=== PATIENT | male | born 1960 | race Caucasian/White ===

== ENCOUNTER 2017-12-29 09:55 | Inpatient (IN) | payer BC ==
--- NOTE | 2017-12-29 10:29 | PDOC ---
History of Present Illness - General History Source: Patient Exam Limitations: No Limitations - History of Present Illness Initial Comments: The patient is a 57 year old male with no significant past medical history of who presents to the emergency department for evaluation for dark stool and dizziness. The patient reports episodes of vomiting and stools with a dark color for 3 days. The patient reports associated symptoms of dyspnea and epigastric discomfort. The patient describes worsening of shortness of breath is exacerbated with movement. Of note, he denies taking blood thinners. The patient denies chest pain and headache. Denies fevers, chills, nausea, vomiting, diarrhea, and constipation. Denies dysuria, frequency, urgency, and hematuria. Allergies: NKA Past surgical history: Not reported. Social history: No reported cigarette, alcohol, or drug use. <Aleyda Tolbert - Last Filed: 12/29/17 12:38> <Darien Jo - Last Filed: 12/29/17 14:55> - General Chief Complaint: Rectal Bleed Stated Complaint: pale/ PCP SENT Time Seen by Provider: 12/29/17 10:28 Past History <Aleyda Tolbert - Last Filed: 12/29/17 12:38> - Past Medical History COPD: No - Suicide/Smoking/Psychosocial Hx Smoking History: Never smoked Information on smoking cessation initiated: No Hx Alcohol Use: No Drug/Substance Use Hx: No Substance Use Type: None <Darien Jo - Last Filed: 12/29/17 14:55> - Past Medical History Allergies/Adverse Reactions: Allergies Allergy/AdvReac Type Severity Reaction Status Date / Time No Known Allergies Allergy Verified 12/29/17 10:03 Home Medications: Ambulatory Orders NK [No Known Home Medication] 12/29/17 Review of Systems - Review of Systems Able to Perform ROS?: Yes Comments:: A complete review of 10 out of 10 review of systems is taken and is negative apart from what is previously mentioned below and in the HPI. <Aleyda Tolbert - Last Filed: 12/29/17 12:38> *Physical Exam - Vital Signs Last Vital Signs Temp Pulse Resp BP Pulse Ox 98.7 F 99 H 18 136/77 98 12/29/17 10:04 12/29/17 10:04 12/29/17 10:04 12/29/17 10:04 12/29/17 11:00 - Physical Exam Comments: Vitals: Triage Vital signs reviewed General Appearance: no acute distress, well nourished well developed, Head: Atraumatic, normocephalic Neck: Supple;No Nuchal rigidity Chest Wall: Nontender Cardiac: Regular rate and rhythm, no murmurs, no rubs, no gallops, Lungs: Clear to auscultation bilateral, good air movement bilaterally, Abdomen: Soft, nondistended, normal bowel sounds, nontender to palpation Rectal: Exam deferred Extremities: Full range of motion to all extremities, no cyanosis, clubbing, or edema Skin: +Pale, no rashes or lesions, no petechiae Psych: normal mood, normal affect <Aleyda Tolbert - Last Filed: 12/29/17 12:38> - Vital Signs Last Vital Signs Temp Pulse Resp BP Pulse Ox 98.7 F 99 H 18 136/77 100 12/29/17 10:04 12/29/17 10:04 12/29/17 10:04 12/29/17 10:04 12/29/17 10:04 <Darien Jo - Last Filed: 12/29/17 14:55> Heart Score/ECG Review - ECG Impressions Comment:: 12/29/17 14:54 EKG performed at 10:30 AM demonstrates sinus rhythm [address] elevations nonspecific T-wave abnormalities laterally Interpreted by me. <Darien Jo - Last Filed: 12/29/17 14:55> ED Treatment Course - LABORATORY CBC & Chemistry Diagram: 12/29/17 10:55 12/29/17 10:44 - ADDITIONAL ORDERS Additional order review: Laboratory Results 12/29/17 12/29/17 12/29/17 10:55 10:44 10:44 PT with INR INR PTT (Actin FS) Sodium Potassium Chloride Carbon Dioxide Anion Gap BUN Creatinine Creat Clearance w eGFR Random Glucose Lactic Acid 1.8 Calcium Total Bilirubin AST ALT Alkaline Phosphatase Total Protein Albumin Stool Occult Blood Positive Blood Type AB POSITIVE Antibody Screen Negative Crossmatch See Detail 12/29/17 12/29/17 10:44 10:44 PT with INR 11.90 H INR 1.05 PTT (Actin FS) 23.3 L Sodium 143 Potassium 4.4 Chloride 112 H Carbon Dioxide 25 Anion Gap 6 L BUN 41 H Creatinine 0.9 Creat Clearance w eGFR > 60 Random Glucose 107 H Lactic Acid Calcium 8.1 L Total Bilirubin 0.2 AST 13 L ALT 20 Alkaline Phosphatase 59 Total Protein 5.7 L Albumin 3.1 L Stool Occult Blood Blood Type Antibody Screen Crossmatch 12/29/17 10:55 RBC 2.61 L MCV 84.1 MCHC 33.1 RDW 13.8 MPV 8.5 Neutrophils % 79.0 Lymphocytes % 13.9 Monocytes % 5.2 Eosinophils % 1.3 Basophils % 0.6 - Medications Given in the ED: ED Medications Discontinued Medications Generic Name Dose Route Start Last Admin Trade Name Piter PRN Reason Stop Dose Admin Pantoprazole Sodium 40 mg 12/29/17 11:51 12/29/17 12:01 Protonix Iv IVPUSH 12/29/17 11:52 40 mg ONCE ONE Administration <Aleyda Tolbert - Last Filed: 12/29/17 12:38> - LABORATORY CBC & Chemistry Diagram: 12/29/17 10:55 12/29/17 10:44 - RADIOLOGY Radiology Studies Ordered: Category Date Time Status CXRPORT [CHEST X-RAY PORTABLE*] [RAD] Stat Radiology 12/29/17 10:28 Ordered <Darien Jo - Last Filed: 12/29/17 14:55> Medical Decision Making - Medical Decision Making 12/29/17 12:41 The patient is a 57 year old male with no significant past medical history of who presents to the emergency department for evaluation for dark stool and dizziness. Will plan: -Labs -ECG Patient was admitted. <Aleyda Tolbert - Last Filed: 12/29/17 12:38> - Medical Decision Making History and examination concerning for upper GI bleed likely ulcer Dr. Glass gastroenterology consultation at bedside labs notable for hemoglobin of 7.[address] Elizalde patient's primary care provider we'll transfuse 2 units start patient on ppi bolus/gtt admit to medicine for further management. <Darien Jo - Last Filed: 12/29/17 14:55> *DC/Admit/Observation/Transfer - Attestations Scribe Attestion: Documentation prepared by Aleyda Tolbert, acting as medical supply technician for Darien oJ MD. <Aleyda Tolbert - Last Filed: 12/29/17 12:38> - Discharge Dispostion Admit: Yes <Sandro,Darien - Last Filed: 12/29/17 14:55> Diagnosis at time of Disposition: GI bleed Qualifiers: GI bleed type/associated pathology: unspecified gastrointestinal hemorrhage type Qualified Code(s): K92.2 - Gastrointestinal hemorrhage, unspecified
[2017-12-29 11:04] LABS: BASO % 0.6 % (0-2.0); EOS % 1.3 % (0-4.5); HEMOGLOBIN 7.3 GM/dL (11.7-16.9); LYMPH % 13.9 % (8-40); MCH 27.8 pg (25.7-33.7); MCHC 33.1 g/dl (32.0-35.9); MEAN CELL VOLUME 84.1 fl (80-96); MEAN PLT VOLUME 8.5 fl (7.5-11.1); MONO % 5.2 % (3.8-10.2); PLATELET COUNT 222 K/MM3 (134-434); RBC 2.61 M/mm3 (4.00-5.60); RDW 13.8 % (11.9-15.9); WHITE BLOOD COUNT 13.9 K/mm3 (4.0-10.0)
[2017-12-29 11:23] LABS: INR 1.05 (0.82-1.09); PROTHROMBIN TIME (PATIENT) 11.9 SEC (9.98-11.88)
[2017-12-29 11:26] LABS: ACTIVATED PTT 23.3 SECONDS (26.9-34.4)
[2017-12-29 11:35] LABS: ALBUMIN 3.1 g/dl (3.4-5.0); ANION GAP 6 (8-16); BILIRUBIN,TOTAL 0.2 mg/dL (0.2-1.0); BLOOD UREA NITROGEN 41 mg/dL (7-18); CALCIUM 8.1 mg/dL (8.5-10.1); CHLORIDE 112 mmol/L (98-107); CO2 25 mmol/L (21-32); CREATININE 0.9 mg/dL (0.7-1.3); GLUCOSE,RANDOM 107 mg/dL (74-106); POTASSIUM 4.4 mmol/L (3.5-5.1); SGOT/AST 13 U/L (15-37); SGPT/ALT 20 U/L (12-78); SODIUM 143 mmol/L (136-145); TOT PROT 5.7 g/dl (6.4-8.2)
[2017-12-29 11:36] LABS: ALK PHOS 59 U/L (45-117)
[2017-12-29] MEDS ORDERED: PANTOPRAZOLE SODIUM 40 MG VIAL IVPUSH ONE (11:51)
[2017-12-29] MEDS: PANTOPRAZOLE SODIUM 80 MG in SODIUM CHLORIDE 100 ML IVPB SCH ×2 (12:01→22:54)
[2017-12-29] MEDS ORDERED: PANTOPRAZOLE SODIUM 40 MG/100 ML BAG IVPB ONE (13:10)
[2017-12-29] MEDS ORDERED: PANTOPRAZOLE SODIUM 40 MG VIAL ONE (13:11)
[2017-12-29 14:27] VITALS: BMI 30.8
--- NOTE | 2017-12-29 14:34 | CON.GI ---
Consult Consult Specialty:: GI Reason for Consultation:: anemia - History of Present Illness History of Present Illness: As per ED intake: the patient is a 57 year old male with no significant past medical history of who presents to the emergency department for evaluation for dark stool and dizziness. The patient reports episodes of vomiting and stools with a dark color for 3 days. The patient reports associated symptoms of dyspnea and epigastric discomfort. The patient describes worsening of shortness of breath is exacerbated with movement. Of note, he denies taking blood thinners. No prior history of significant GI-related issues, other than constipation. He takes laxatives on/off. Denies chronic NSAIDs, ETOH. No estephania hematochezia, hematemeis. No dysphagia, odynophagia, jaundice, weight loss, or poor appetite. Had normal colonoscopy 1 year ago. Although consented to receive blood products , he wants to wait until after EGD. - History Source History Provided By: Patient Limitations to Obtaining History: No Limitations - Alcohol/Substance Use Hx Alcohol Use: No - Smoking History Smoking history: Never smoked Home Medications - Allergies Allergies/Adverse Reactions: Allergies Allergy/AdvReac Type Severity Reaction Status Date / Time No Known Allergies Allergy Verified 12/29/17 10:03 - Home Medications Home Medications: Ambulatory Orders NK [No Known Home Medication] 12/29/17 Family Disease History - Family Disease History Family History: Unremarkable Review of Systems Findings/Remarks: as per HPI, H&P, otherwise negative Physical Exam-GI Vital Signs: Vital Signs Temperature 98.7 F 12/29/17 10:04 Pulse Rate 99 H 12/29/17 10:04 Respiratory Rate 18 12/29/17 10:04 Blood Pressure 136/77 12/29/17 10:04 O2 Sat by Pulse Oximetry (%) 98 12/29/17 11:00 Constitutional: Yes: Well Nourished, No Distress, Calm, Pallor Eyes: Yes: Conjunctiva Clear. No: Sclera Icterus HENT: Yes: Atraumatic, Normocephalic Neck: Yes: Supple, Trachea Midline Cardiovascular: Yes: Regular Rate and Rhythm. No: Bradycardia, Tachycardia Respiratory: Yes: Regular, CTA Bilaterally Gastrointestinal Inspection: No: Ascites, Distention ...Auscultate: Yes: Normoactive Bowel Sounds ...Palpate: Yes: Soft. No: Firm/Rigid, Mass, Tenderness, Tenderness, Rebound Neurological: Yes: Alert, Oriented Labs: CBC, BMP 12/29/17 10:55 12/29/17 10:44 INR, PTT INR 1.05 (0.82-1.09) 12/29/17 10:44 Laboratory Last Values WBC 13.9 K/mm3 (4.0-10.0) H 12/29/17 10:55 RBC 2.61 M/mm3 (4.00-5.60) L 12/29/17 10:55 Hgb 7.3 GM/dL (11.7-16.9) L 12/29/17 10:55 Hct 22.0 % (35.4-49) L 12/29/17 10:55 MCV 84.1 fl (80-96) 12/29/17 10:55 MCH 27.8 pg (25.7-33.7) 12/29/17 10:55 MCHC 33.1 g/dl (32.0-35.9) 12/29/17 10:55 RDW 13.8 % (11.9-15.9) 12/29/17 10:55 Plt Count 222 K/MM3 (134-434) 12/29/17 10:55 MPV 8.5 fl (7.5-11.1) 12/29/17 10:55 Neutrophils % 79.0 % (42.8-82.8) 12/29/17 10:55 Lymphocytes % 13.9 % (8-40) 12/29/17 10:55 Monocytes % 5.2 % (3.8-10.2) 12/29/17 10:55 Eosinophils % 1.3 % (0-4.5) 12/29/17 10:55 Basophils % 0.6 % (0-2.0) 12/29/17 10:55 PT with INR 11.90 SEC (9.98-11.88) H 12/29/17 10:44 INR 1.05 (0.82-1.09) 12/29/17 10:44 PTT (Actin FS) 23.3 SECONDS (26.9-34.4) L 12/29/17 10:44 Sodium 143 mmol/L (136-145) 12/29/17 10:44 Potassium 4.4 mmol/L (3.5-5.1) 12/29/17 10:44 Chloride 112 mmol/L (98-107) H 12/29/17 10:44 Carbon Dioxide 25 mmol/L (21-32) 12/29/17 10:44 Anion Gap 6 (8-16) L 12/29/17 10:44 BUN 41 mg/dL (7-18) H 12/29/17 10:44 Creatinine 0.9 mg/dL (0.7-1.3) 12/29/17 10:44 Creat Clearance w eGFR > 60 (>60) 12/29/17 10:44 Random Glucose 107 mg/dL (74-106) H 12/29/17 10:44 Lactic Acid 1.8 mmol/L (0.0-2.0) 12/29/17 10:44 Calcium 8.1 mg/dL (8.5-10.1) L 12/29/17 10:44 Total Bilirubin 0.2 mg/dL (0.2-1.0) 12/29/17 10:44 AST 13 U/L (15-37) L 12/29/17 10:44 ALT 20 U/L (12-78) 12/29/17 10:44 Alkaline Phosphatase 59 U/L (45-117) 12/29/17 10:44 Total Protein 5.7 g/dl (6.4-8.2) L 12/29/17 10:44 Albumin 3.1 g/dl (3.4-5.0) L 12/29/17 10:44 Stool Occult Blood Positive (NEGATIVE) 12/29/17 10:55 Blood Type AB POSITIVE 12/29/17 10:44 Antibody Screen Negative 12/29/17 10:44 Crossmatch See Detail 12/29/17 10:44 Problem List - Problems (1) Anemia due to GI blood loss Code(s): D50.0 - IRON DEFICIENCY ANEMIA SECONDARY TO BLOOD LOSS (CHRONIC) (2) Anemia due to GI blood loss Code(s): D50.0 - IRON DEFICIENCY ANEMIA SECONDARY TO BLOOD LOSS (CHRONIC) (3) Anemia due to gastrointestinal blood loss Code(s): D50.0 - IRON DEFICIENCY ANEMIA SECONDARY TO BLOOD LOSS (CHRONIC) (4) GI bleed Code(s): K92.2 - GASTROINTESTINAL HEMORRHAGE, UNSPECIFIED Qualifiers: GI bleed type/associated pathology: unspecified gastrointestinal hemorrhage type Qualified Code(s): K92.2 - Gastrointestinal hemorrhage, unspecified Assessment/Plan Anemia with heme positive stool in an otherwise healthy 57M. Relatively asymptomatic with Hg 7g/dl suggesting slow chronic process. Plan EGD, as discussed with the patient. He is not averse to blood products in general, but refusing blood transfusion prior to the procedure. We discussed the need for blood if actively bleeding during the procedure, or high risk of bleeding after. He agreed. PPI bid Carafate qid IVF NPO Transfuse PRBC if Hgb < 7g/dl close monitoring EGD today
[2017-12-29] MEDS ORDERED: PROPOFOL 20 ML ONE ×3 (14:45)
[2017-12-29] MEDS ORDERED: LIDOCAINE HCL/PF 1% SDV 5ML VIAL ONE (14:45)
[2017-12-29] MEDS ORDERED: MIDAZOLAM HCL 2 MG/2 ML SINGLE DOSE VIAL ONE (14:54)
[2017-12-29] MEDS ORDERED: EPINEPHrine 1:10,000 (P-F SYR) 1 MG/10 ML DISP.SYRIN ONE (15:19)
[2017-12-29] MEDS ORDERED: EPINEPHrine 1:10,000 (P-F SYR) 1 MG/10 ML DISP.SYRIN IVPUSH ONE (15:20)
--- NOTE | 2017-12-29 15:51 | PROC ---
Endoscopy Procedure Endoscopy procedure completed. Please see scanned procedure report. A small duodenal bulb ulcer with stigmata of impending bleeding was found, injected and clipped. Biopsies from 2nd portion taken. A 10 x 30 mm shallow, white-based, w/o stigmata of recent, or impending bleeding ulcer was found in [facility] antrum. It was injected with epi, but not clipped due to difficult location. 2, 5 x5 mm, shallow, white based ucers were also found in the antrum. Biopsied. Random gastric biopsies taken. A wide-open Schatzki's ring with a nodule was noted at [facility]J. Biopsies taken, otherwise normal esophagus. PPI po bid Carafate 1 gm po QID No NSAIDs Clear liquid diet today Follow up in office in 1 week Repeat EGD in 3 months
[2017-12-29] MEDS ORDERED: MORPHINE SULFATE 10 MG/1 ML *VIAL ONE (16:17)
[2017-12-29] MEDS ORDERED: morphine SULFATE 4 MG/ML VIAL IVPUSH ONE (16:30)
[2017-12-29] MEDS ORDERED: morphine SULFATE 4 MG/ML VIAL IVPUSH PRN (16:56)
--- NOTE | 2017-12-29 18:13 | HP ---
Admitting History and Physical - Primary Care Physician PCP: Iris Stafford - Admission Chief Complaint: WEAKNESS/CHEST PAIN/BRBPR/COFFEE GROUND EMESIS History of Present Illness: PATIENT CALLED ME THIS AM AND C/O COFFEE GROUND EMESIS AND BLACK STOOLS. C/O WEAKNESS AND CHEST PAIN WITH DIZZINESS History Source: Patient - Smoking History Smoking history: Never smoked - Alcohol/Substance Use Hx Alcohol Use: No Home Medications - Allergies Allergies/Adverse Reactions: Allergies Allergy/AdvReac Type Severity Reaction Status Date / Time No Known Allergies Allergy Verified 12/29/17 10:03 - Home Medications Home Medications: Ambulatory Orders NK [No Known Home Medication] 12/29/17 Review of Systems - Review of Systems Constitutional: reports: Loss of Appetite, Malaise, Weakness Eyes: reports: No Symptoms HENT: reports: No Symptoms Neck: reports: No Symptoms Cardiovascular: reports: Chest Pain Respiratory: reports: SOB Gastrointestinal: reports: No Symptoms Genitourinary: reports: No Symptoms Musculoskeletal: reports: No Symptoms Integumentary: reports: No Symptoms Neurological: reports: No Symptoms Endocrine: reports: No Symptoms Hematology/Lymphatic: reports: No Symptoms Psychiatric: reports: No Symptoms Physical Examination Vital Signs: Vital Signs Temperature 98.3 F 12/29/17 16:48 Pulse Rate 89 12/29/17 16:48 Respiratory Rate 18 12/29/17 16:48 Blood Pressure 118/63 12/29/17 16:48 O2 Sat by Pulse Oximetry (%) 96 12/29/17 16:48 Constitutional: Yes: Moderate Distress Eyes: Yes: WNL HENT: Yes: WNL Neck: Yes: WNL Cardiovascular: Yes: WNL Respiratory: Yes: WNL Gastrointestinal: Yes: WNL Musculoskeletal: Yes: WNL Extremities: Yes: WNL Edema: No Peripheral Pulses WNL: Yes Integumentary: Yes: WNL Wound/Incision: Yes: Clean/Dry Neurological: Yes: WNL ...Motor Strength: WNL Psychiatric: Yes: WNL Labs: CBC, BMP 12/29/17 10:44 Imaging - Results Chest X-ray: Report Reviewed Problem List - Problems (1) Chest pain Code(s): R07.9 - CHEST PAIN, UNSPECIFIED (2) Weakness Code(s): R53.1 - WEAKNESS (3) Anemia due to GI blood loss Code(s): D50.0 - IRON DEFICIENCY ANEMIA SECONDARY TO BLOOD LOSS (CHRONIC) (4) GI bleed Code(s): K92.2 - GASTROINTESTINAL HEMORRHAGE, UNSPECIFIED Qualifiers: GI bleed type/associated pathology: unspecified gastrointestinal hemorrhage type Qualified Code(s): K92.2 - Gastrointestinal hemorrhage, unspecified Assessment/Plan GI EVAL STAT EVAL WITH ACUTE ULCERS PPI CLEAR DIET TRANSFUSE PRBC CBC IN AM CARDIAC ENZYMES AND EKG STAT CHEST PAIN EVAL
[2017-12-29 18:25] LABS: BASO % 0.3 % (0-2.0); EOS % 0.1 % (0-4.5); HEMATOCRIT 18.6 % (35.4-49); MCH 28.3 pg (25.7-33.7); MCHC 33.8 g/dl (32.0-35.9); MEAN CELL VOLUME 83.7 fl (80-96); MEAN PLT VOLUME 8.7 fl (7.5-11.1); MONO % 4.1 % (3.8-10.2); NEUT % 88.5 % (42.8-82.8); PLATELET COUNT 188 K/MM3 (134-434); RBC 2.22 M/mm3 (4.00-5.60); RDW 13.9 % (11.9-15.9); WHITE BLOOD COUNT 15.6 K/mm3 (4.0-10.0)
[2017-12-29 18:28] LABS: HEMOGLOBIN 6.3 GM/dL (11.7-16.9)
--- NOTE | 2017-12-29 23:48 | EKG ---
Test Reason : Blood Pressure : / mmHG Vent. Rate : 097 BPM Atrial Rate : 097 BPM P-R Int : 130 ms QRS Dur : 090 ms QT Int : 364 ms P-R-T Axes : 012 031 028 degrees QTc Int : 462 ms NORMAL SINUS RHYTHM MINIMAL VOLTAGE CRITERIA FOR LVH, MAY BE NORMAL VARIANT NONSPECIFIC T WAVE ABNORMALITY PROLONGED QT ABNORMAL ECG NO PREVIOUS ECGS AVAILABLE Confirmed by QI PATEL MD ([id number]) on 12/29/2017 11:48:01 PM Referred By: Confirmed By:QI PATEL MD
[2017-12-30] MEDS: PANTOPRAZOLE SODIUM 80 MG in SODIUM CHLORIDE 100 ML IVPB SCH ×2 (05:25→09:54)
[2017-12-30 07:58] LABS: HEMATOCRIT 21.6 % (35.4-49); HEMOGLOBIN 7.5 GM/dL (11.7-16.9); MCH 29.2 pg (25.7-33.7); MCHC 34.5 g/dl (32.0-35.9); MEAN CELL VOLUME 84.6 fl (80-96); MEAN PLT VOLUME 8.7 fl (7.5-11.1); PLATELET COUNT 176 K/MM3 (134-434); RBC 2.55 M/mm3 (4.00-5.60); WHITE BLOOD COUNT 11.3 K/mm3 (4.0-10.0)
[2017-12-30 08:24] LABS: ALBUMIN 2.9 g/dl (3.4-5.0); BLOOD UREA NITROGEN 19 mg/dL (7-18); CALCIUM 8.3 mg/dL (8.5-10.1); CHLORIDE 112 mmol/L (98-107); GLUCOSE,RANDOM 92 mg/dL (74-106); POTASSIUM 4.2 mmol/L (3.5-5.1); SODIUM 145 mmol/L (136-145)
[2017-12-30 08:31] LABS: ALK PHOS 51 U/L (45-117); ANION GAP 7 (8-16); BILIRUBIN,TOTAL 0.5 mg/dL (0.2-1.0); CO2 26 mmol/L (21-32); SGOT/AST 10 U/L (15-37); SGPT/ALT 17 U/L (12-78); TOT PROT 5.2 g/dl (6.4-8.2)
[2017-12-30] MEDS ORDERED: PT OWN MED DRAWER 7, Y5N ONE (09:35)
--- NOTE | 2017-12-30 10:35 | EKG ---
Test Reason : Blood Pressure : / mmHG Vent. Rate : 103 BPM Atrial Rate : 103 BPM P-R Int : 142 ms QRS Dur : 088 ms QT Int : 378 ms P-R-T Axes : 023 024 012 degrees QTc Int : 495 ms SINUS TACHYCARDIA MINIMAL VOLTAGE CRITERIA FOR LVH, MAY BE NORMAL VARIANT NONSPECIFIC T WAVE ABNORMALITY ABNORMAL ECG WHEN COMPARED WITH ECG OF 29-DEC-2017 10:30, NO SIGNIFICANT CHANGE WAS FOUND Confirmed by MD Leonardo, Moreno ([id number]) on 12/30/2017 10:34:36 AM Referred By: Confirmed By:Moreno Patterson MD
[2017-12-30] MEDS ORDERED: BISACODYL 5 MG TABLET.DR (FP) PO PRN (12:42)
[2017-12-30] MEDS ORDERED: POLYETHYLENE GLYCOL 3350 119 GM BTL PO SCH (12:45)
--- NOTE | 2017-12-30 12:47 | PN ---
Progress Note, Physician Chief Complaint: patient seen and exmained s/p EGD - Current Medication List Current Medications: Active Medications Bisacodyl (Dulcolax -) 5 mg PO DAILY PRN PRN Reason: CONSTIPATION Morphine Sulfate (Morphine Sulfate) 2 mg IVPUSH Q3H PRN PRN Reason: PAIN LEVEL 1-5 Pantoprazole Sodium (Protonix -) 40 mg PO BID KELLY Polyethylene Glycol (Miralax (For Daily Use) -) 17 gm PO DAILY KELLY Sucralfate (Carafate -) 1 gm PO QID KELLY - Objective Vital Signs: Vital Signs Temperature 98.7 F 12/30/17 07:31 Pulse Rate 95 H 12/30/17 07:31 Respiratory Rate 20 12/30/17 07:31 Blood Pressure 108/58 12/30/17 07:31 O2 Sat by Pulse Oximetry (%) 96 12/29/17 20:17 Constitutional: Yes: Calm Cardiovascular: Yes: Regular Rate and Rhythm, S1, S2 Respiratory: Yes: CTA Bilaterally Gastrointestinal: Yes: Normal Bowel Sounds, Soft Edema: No Neurological: Yes: Alert, Oriented Labs: CBC, BMP 12/30/17 06:15 12/30/17 06:15 INR, PTT INR 1.05 (0.82-1.09) 12/29/17 10:44 Problem List - Problems (1) Anemia due to gastrointestinal blood loss Assessment/Plan: PO Ppi bid EGD small non bleeding ulcer found in duodenal bulb and gastric antrum and was injected with epinephrine trasfuse one more unit today carafate 1gm qid advance diet and repeat cbc in AM dc planning home in am GI Fu in 2 weeks Code(s): D50.0 - IRON DEFICIENCY ANEMIA SECONDARY TO BLOOD LOSS (CHRONIC)
[2017-12-30] MEDS ORDERED: DOCUSATE SODIUM 100 MG CAPSULE (FP) PO SCH (14:00)
[2017-12-30] MEDS: SUCRALFATE 1 GM TABLET (FP) PO SCH ×2 (17:39→21:13)
[2017-12-30 18:28] LABS: BASO % 0.6 % (0-2.0); EOS % 1.6 % (0-4.5); HEMATOCRIT 24.6 % (35.4-49); HEMOGLOBIN 8.3 GM/dL (11.7-16.9); LYMPH % 20.6 % (8-40); MCH 28.8 pg (25.7-33.7); MCHC 33.6 g/dl (32.0-35.9); MEAN CELL VOLUME 85.4 fl (80-96); MONO % 5.9 % (3.8-10.2); NEUT % 71.3 % (42.8-82.8); PLATELET COUNT 201 K/MM3 (134-434); RBC 2.88 M/mm3 (4.00-5.60); RDW 14.4 % (11.9-15.9)
--- NOTE | 2017-12-30 19:51 | PN ---
Progress Note, Physician History of Present Illness: No events. Comfortable. Pain-free - Current Medication List Current Medications: Active Medications Bisacodyl (Dulcolax -) 5 mg PO DAILY PRN PRN Reason: CONSTIPATION Morphine Sulfate (Morphine Sulfate) 2 mg IVPUSH Q3H PRN PRN Reason: PAIN LEVEL 1-5 Pantoprazole Sodium (Protonix -) 40 mg PO BID KELLY Sucralfate (Carafate -) 1 gm PO ACHS KELLY Last Admin: 12/30/17 17:39 Dose: 1 gm - Objective Vital Signs: Vital Signs Temperature 98.7 F 12/30/17 18:14 Pulse Rate 101 H 12/30/17 18:14 Respiratory Rate 20 12/30/17 18:14 Blood Pressure 138/78 12/30/17 18:14 O2 Sat by Pulse Oximetry (%) 96 12/30/17 09:00 Constitutional: Yes: Well Nourished, No Distress, Calm Eyes: Yes: Conjunctiva Clear HENT: Yes: Atraumatic Neck: Yes: Supple Cardiovascular: Yes: Regular Rate and Rhythm Respiratory: Yes: Regular Gastrointestinal: Yes: Normal Bowel Sounds, Soft. No: Ascites, Distention, Melena, Rectal Bleeding, Vomiting Neurological: Yes: Alert, Oriented Labs: CBC, BMP 12/30/17 17:05 12/30/17 06:15 INR, PTT INR 1.05 (0.82-1.09) 12/29/17 10:44 Laboratory Last Values WBC 12.0 K/mm3 (4.0-10.0) H 12/30/17 17:05 RBC 2.88 M/mm3 (4.00-5.60) L 12/30/17 17:05 Hgb 8.3 GM/dL (11.7-16.9) L D 12/30/17 17:05 Hct 24.6 % (35.4-49) L 12/30/17 17:05 MCV 85.4 fl (80-96) 12/30/17 17:05 MCH 28.8 pg (25.7-33.7) 12/30/17 17:05 MCHC 33.6 g/dl (32.0-35.9) 12/30/17 17:05 RDW 14.4 % (11.9-15.9) 04/10/18 17:05 Plt Count 201 K/MM3 (134-434) 12/30/17 17:05 MPV 9.0 fl (7.5-11.1) 12/30/17 17:05 Neutrophils % 71.3 % (42.8-82.8) 12/30/17 17:05 Lymphocytes % 20.6 % (8-40) D 12/30/17 17:05 Monocytes % 5.9 % (3.8-10.2) 12/30/17 17:05 Eosinophils % 1.6 % (0-4.5) D 12/30/17 17:05 Basophils % 0.6 % (0-2.0) 12/30/17 17:05 PT with INR 11.90 SEC (9.98-11.88) H 12/29/17 10:44 INR 1.05 (0.82-1.09) 12/29/17 10:44 PTT (Actin FS) 23.3 SECONDS (26.9-34.4) L 12/29/17 10:44 Sodium 145 mmol/L (136-145) 12/30/17 06:15 Potassium 4.2 mmol/L (3.5-5.1) 12/30/17 06:15 Chloride 112 mmol/L (98-107) H 12/30/17 06:15 Carbon Dioxide 26 mmol/L (21-32) 12/30/17 06:15 Anion Gap 7 (8-16) L 12/30/17 06:15 BUN 19 mg/dL (7-18) H D 12/30/17 06:15 Creatinine 1.0 mg/dL (0.7-1.3) 12/30/17 06:15 Creat Clearance w eGFR > 60 (>60) 12/30/17 06:15 Random Glucose 92 mg/dL (74-106) 12/30/17 06:15 Lactic Acid 1.8 mmol/L (0.0-2.0) 12/29/17 10:44 Calcium 8.3 mg/dL (8.5-10.1) L 12/30/17 06:15 Total Bilirubin 0.5 mg/dL (0.2-1.0) D 12/30/17 06:15 AST 10 U/L (15-37) L D 12/30/17 06:15 ALT 17 U/L (12-78) 12/30/17 06:15 Alkaline Phosphatase 51 U/L (45-117) 12/30/17 06:15 Creatine Kinase 46 IU/L (39-308) 12/30/17 06:15 Troponin I < 0.02 ng/ml (0.00-0.05) 12/30/17 06:15 Total Protein 5.2 g/dl (6.4-8.2) L 12/30/17 06:15 Albumin 2.9 g/dl (3.4-5.0) L 12/30/17 06:15 Stool Occult Blood Positive (NEGATIVE) 12/29/17 10:55 Blood Type AB POSITIVE 12/29/17 13:55 Antibody Screen Negative 12/29/17 10:44 Crossmatch See Detail 12/29/17 13:55 Problem List - Problems (1) Anemia due to GI blood loss Code(s): D50.0 - IRON DEFICIENCY ANEMIA SECONDARY TO BLOOD LOSS (CHRONIC) (2) Anemia due to GI blood loss Code(s): D50.0 - IRON DEFICIENCY ANEMIA SECONDARY TO BLOOD LOSS (CHRONIC) (3) Anemia due to gastrointestinal blood loss Code(s): D50.0 - IRON DEFICIENCY ANEMIA SECONDARY TO BLOOD LOSS (CHRONIC) (4) GI bleed Code(s): K92.2 - GASTROINTESTINAL HEMORRHAGE, UNSPECIFIED Qualifiers: GI bleed type/associated pathology: unspecified gastrointestinal hemorrhage type Qualified Code(s): K92.2 - Gastrointestinal hemorrhage, unspecified (5) Duodenal ulcer Code(s): K26.9 - DUODENAL ULCER, UNSP ACUTE OR CHRONIC, W/O HEMOR OR PERF (6) Gastric ulcer Code(s): K25.9 - GASTRIC ULCER, UNSP ACUTE OR CHRONIC, W/O HEMOR OR PERF Assessment/Plan Advance diet continue PPI/Carafate Avoid NSAIDs surveillance EGD in 3 months discussed with the patient
[2017-12-30] MEDS: PANTOPRAZOLE 40 MG TABLET (FP) PO SCH (21:13)
[2017-12-31] MEDS: SUCRALFATE 1 GM TABLET (FP) PO SCH ×2 (05:59→12:05)
[2017-12-31 06:27] VITALS: PULSE 88
[2017-12-31] MEDS ORDERED: MAGNESIUM HYDROX 2400MG/30ML ORAL SUSPENSION 30 ML CUP PO ONE (08:20)
[2017-12-31] MEDS ORDERED: BISACODYL 10 MG SUPP.RECT PR ONE (08:31)
--- NOTE | 2017-12-31 08:33 | DS ---
Physical Examination Vital Signs: Vital Signs Temperature 97.5 F L 12/31/17 06:26 Pulse Rate 88 12/31/17 06:26 Respiratory Rate 20 12/31/17 06:26 Blood Pressure 124/69 12/31/17 06:26 O2 Sat by Pulse Oximetry (%) 96 12/30/17 21:00 Findings/Remarks: chronic constipation Cardiovascular: Yes: Regular Rate and Rhythm Respiratory: Yes: Regular, CTA Bilaterally Gastrointestinal: Yes: Normal Bowel Sounds, Soft. No: Tenderness Labs: CBC, BMP 12/30/17 17:05 12/30/17 06:15 Discharge Summary Reason For Visit: GASTROINTESTINAL HEMORRHAGE Current Active Problems Anemia due to GI blood loss (Acute) Anemia due to GI blood loss (Acute) Anemia due to gastrointestinal blood loss (Acute) Chest pain (Acute) Duodenal ulcer (Acute) GI bleed (Acute) Gastric ulcer (Acute) Weakness (Acute) Hospital Course: 57 year old male with no significant past medical history of who presents to the emergency department for evaluation for dark stool and dizziness. The patient reports episodes of vomiting and stools with a dark color for 3 days. The patient reports associated symptoms of dyspnea and epigastric discomfort. The patient describes worsening of shortness of breath is exacerbated with movement. Of note, he denies taking blood thinners. No prior history of significant GI-related issues, other than constipation. He takes laxatives on/off. Denies chronic NSAIDs, ETOH. No estephania hematochezia, hematemeis. No dysphagia, odynophagia, jaundice, weight loss, or poor appetite. Had normal colonoscopy 1 year ago. Although consented to receive blood products , he wants to wait until after EGD. - History Source History Provided By: Patient Limitations to Obtaining History: No Limitations (1) Anemia due to gastrointestinal blood loss Assessment/Plan: PO Ppi bid EGD small non bleeding ulcer found in duodenal bulb and gastric antrum and was injected with epinephrine trasfuse one more unit today carafate 1gm qid advance diet and repeat cbc pending dc planning home if hgb stable GI Fu in 2 weeks Code(s): D50.0 - IRON DEFICIENCY ANEMIA SECONDARY TO BLOOD LOSS (CHRONIC) (2) Constipation -dulcolox supp -linzess --Gi follow up dc home if hgb stableand having bm - Instructions Diet, Activity, Other Instructions: carafate 1gm qid no NSAIDs protonix BId Referrals: Solis Glass MD [Staff Physician] - 1 Week - Home Medications Comprehensive Discharge Medication List: Ambulatory Orders Linaclotide [Linzess] 145 mcg PO DAILY #30 cap 12/31/17 Pantoprazole Sodium [Protonix -] 40 mg PO BID #60 tablet.ec 12/31/17 Sucralfate [Carafate -] 1 gm PO ACHS #120 tablet 12/31/17
[2017-12-31] MEDS ORDERED: PT OWN MED DRAWER 7, Y5N ONE (09:17)
[2017-12-31] MEDS: PANTOPRAZOLE 40 MG TABLET (FP) PO SCH (09:23)
[2017-12-31 09:47] LABS: BASO % 0.6 % (0-2.0); HEMATOCRIT 26.5 % (35.4-49); LYMPH % 17.6 % (8-40); MCH 29.3 pg (25.7-33.7); MEAN CELL VOLUME 86.2 fl (80-96); MEAN PLT VOLUME 8.3 fl (7.5-11.1); MONO % 5.7 % (3.8-10.2); NEUT % 74.1 % (42.8-82.8); PLATELET COUNT 222 K/MM3 (134-434); RBC 3.07 M/mm3 (4.00-5.60); RDW 14.3 % (11.9-15.9); WHITE BLOOD COUNT 12.1 K/mm3 (4.0-10.0)
[2017-12-31] MEDS ORDERED: POLYETHYLENE GLYCOL 3350 119 GM BTL PO SCH (10:00)
[2017-12-31 10:26] VITALS: BP 121/77; TEMP 98.4
--- NOTE | 2017-12-31 17:14 | PN ---
Progress Note (short form) - Note Progress Note: pt discharged prior to consultation.
--- NOTE | 2018-01-01 09:57 | PATH ---
Surgical Pathology Report Patient Name: SAMANTHA ESPINOSA [facility]. Rec. #: [id number] /Age/Gender: 1960 (Age: 57) / M Account: [id number] Location: [facility] MED/SURG Taken: 12/29/2017 Received: 12/30/2017 Reported: 01/01/2018 Physicians: Damon Bueno M.D. Specimen(s) Received A: BX DUODENUM B: BX ANTRUM BODY C: BX ANTRUM ULCERS D: BX ESOPHAGUS DISTAL Clinical History GI bleed Postoperative diagnosis: Antral ulcers, duodenal ulcers, esophagitis Final Diagnosis A. DUODENUM, SECOND PORTION, BIOPSY: DUODENAL MUCOSA WITH MODERATE ACUTE AND CHRONIC DUODENITIS. B. STOMACH, ANTRUM AND BODY, BIOPSY: GASTRIC ANTRAL AND BODY MUCOSA WITH SEVERE CHRONIC ACTIVE GASTRITIS. IMMUNOHISTOCHEMICAL STAIN FOR H. PYLORI IS POSITIVE (NUMEROUS). C. STOMACH, ANTRUM, ULCER, BIOPSY: GASTRIC ANTRAL MUCOSA WITH SEVERE CHRONIC ACTIVE GASTRITIS. IMMUNOHISTOCHEMICAL STAIN FOR H. PYLORI IS POSITIVE (NUMEROUS). D. DISTAL ESOPHAGUS, BIOPSY: SQUAMOUS MUCOSA WITH MODERATE ACUTE AND CHRONIC INFLAMMATION, BASAL CELL HYPERPLASIA, AND REACTIVE CHANGES CONSISTENT WITH SEVERE REFLUX TYPE ESOPHAGITIS. FUNGAL (PAS) STAIN IS NEGATIVE. Electronically Signed Jazmine Givens M.D. Gross Description A. Received in formalin, labeled "biopsy second portion of duodenum" are 4 arce, irregular portions of soft tissue ranging from 0.1-0.3 cm. in greatest dimension. The specimens are submitted in toto in one cassette. B. Received in formalin, labeled "biopsy antrum and body" are 2 arce, irregular portions of soft tissue averaging 0.2 cm. in greatest dimension. The specimens are submitted in toto in one cassette. C. Received in formalin, labeled "biopsy antral ulcers" are 3 arce, irregular portions of soft tissue ranging from 0.1-0.2 cm. in greatest dimension. The specimens are submitted in toto in one cassette. D. Received in formalin, labeled "biopsy distal esophagus" is a arce, irregular portion of soft tissue measuring 0.4 cm. in greatest dimension. The specimen is submitted in toto in one cassette. 12/30/2017 saudi12/30/2017
--- NOTE | 2018-01-02 09:32 | EKG ---
Test Reason : Blood Pressure : / mmHG Vent. Rate : 133 BPM Atrial Rate : 133 BPM P-R Int : 122 ms QRS Dur : 110 ms QT Int : 302 ms P-R-T Axes : 046 027 015 degrees QTc Int : 449 ms SINUS TACHYCARDIA NONSPECIFIC T WAVE ABNORMALITY ABNORMAL ECG WHEN COMPARED WITH ECG OF 29-DEC-2017 18:23, QUESTIONABLE CHANGE IN QRS DURATION Confirmed by NEDA BAILEY MD ([id number]) on 01/02/2018 9:31:37 AM Referred By: Confirmed By:NEDA BAILEY MD
--- NOTE | 2018-01-07 11:08 | PN ---
Progress Note (short form) - Note Progress Note: pathology, h,. pylori rx discussed with pt (he's in [facility]) will be back in area on Friday and will call me for rx Problem List - Problems (1) Anemia due to GI blood loss Code(s): D50.0 - IRON DEFICIENCY ANEMIA SECONDARY TO BLOOD LOSS (CHRONIC) (2) Anemia due to GI blood loss Code(s): D50.0 - IRON DEFICIENCY ANEMIA SECONDARY TO BLOOD LOSS (CHRONIC) (3) Anemia due to gastrointestinal blood loss Code(s): D50.0 - IRON DEFICIENCY ANEMIA SECONDARY TO BLOOD LOSS (CHRONIC) (4) GI bleed Code(s): K92.2 - GASTROINTESTINAL HEMORRHAGE, UNSPECIFIED Qualifiers: GI bleed type/associated pathology: unspecified gastrointestinal hemorrhage type Qualified Code(s): K92.2 - Gastrointestinal hemorrhage, unspecified (5) Duodenal ulcer Code(s): K26.9 - DUODENAL ULCER, UNSP ACUTE OR CHRONIC, W/O HEMOR OR PERF (6) Gastric ulcer Code(s): K25.9 - GASTRIC ULCER, UNSP ACUTE OR CHRONIC, W/O HEMOR OR PERF
== END 2017-12-31 13:33 | disposition home or self-care (01) | DRG 358 ==
LOC: JER 09:55 → JERBED 11:53 → J8W 16:55
PROVIDERS: ADMIT Family Medicine; ATTEND Family Medicine
PROC: 0DD98ZX Extraction of Duodenum, Via Natural or Artificial Opening Endoscopic, Diagnostic (ICD-10-PCS; 2017-12-29)
PROC: 0DD68ZX Extraction of Stomach, Via Natural or Artificial Opening Endoscopic, Diagnostic (ICD-10-PCS; 2017-12-29)
PROC: 0DD58ZX Extraction of Esophagus, Via Natural or Artificial Opening Endoscopic, Diagnostic (ICD-10-PCS; 2017-12-29)
PROC: 30233N1 Transfusion of Nonautologous Red Blood Cells into Peripheral Vein, Percutaneous Approach (ICD-10-PCS; 2017-12-29)
PROC: 0W3P4ZZ Control Bleeding in Gastrointestinal Tract, Percutaneous Endoscopic Approach (ICD-10-PCS; principal; 2017-12-29 13:45)
DX: K26.0 Acute duodenal ulcer with hemorrhage (principal); R07.9 Chest pain, unspecified; R53.1 Weakness; D50.0 Iron deficiency anemia secondary to blood loss (chronic); K59.00 Constipation, unspecified; K29.50 Unspecified chronic gastritis without bleeding; B96.81 Helicobacter pylori [H. pylori] as the cause of diseases classified elsewhere; K20.9 Esophagitis, unspecified; K29.80 Duodenitis without bleeding
CPT/HCPCS: 36415; 36430; 71045-TC-FY; 80053; 82272; 82550; 83605; 84484; 85025; 85027; 85610; 85730; 86850; 86900; 86901; 86922; 88305-TC; 93005; 93010; 99285-25; P9038; P9058

== ENCOUNTER 2018-04-27 11:16 | Day surgery (SDC) | payer BC ==
[2018-04-27] MEDS ORDERED: PROPOFOL 20 ML ONE ×2 (11:50)
[2018-04-27 12:11] VITALS: BMI 27.1
--- NOTE | 2018-04-27 12:39 | PROC ---
Endoscopy Procedure Endoscopy procedure completed. Please see scanned procedure report.
[2018-04-27 14:41] VITALS: BP 110/67; PULSE 64; TEMP 98
--- NOTE | 2018-04-28 12:28 | PATH ---
Surgical Pathology Report Patient Name: SAMANTHA ESPINOSA [facility]. Rec. #: [id number] /Age/Gender: 1960 (Age: 57) / M Account: [id number] Location: U-ENDOSCOPY Taken: 04/27/2018 Received: 04/27/2018 Reported: 04/28/2018 Physicians: Solis Glass M.D. Specimen(s) Received A: BX 2ND PORTION DUODENUM B: BX ANTRUM AND BODY Clinical History History of gastric ulcer Postoperative diagnosis: Small gastric ulcer, duodenitis, gastritis Final Diagnosis A. DUODENUM, SECOND PORTION, BIOPSY: DUODENAL MUCOSA WITH MILD CHRONIC DUODENITIS AND PRESERVED VILLOUS ARCHITECTURE. B. STOMACH, ANTRUM AND BODY, BIOPSY: GASTRIC ANTRAL AND BODY MUCOSA WITH MODERATE CHRONIC ACTIVE GASTRITIS. IMMUNOHISTOCHEMICAL STAIN FOR H. PYLORI IS POSITIVE (FEW). Electronically Signed Jazmine Givens M.D. Gross Description A. Received in formalin, labeled "biopsy second portion of duodenum" are 2 arce, irregular portions of soft tissue averaging 0.3 cm. in greatest dimension. The specimens are submitted in toto in one cassette. B. Received in formalin, labeled "biopsy antrum and body" are 2 arce, irregular portions of soft tissue measuring 0.2 and 0.4 cm. in greatest dimension. The specimens are submitted in toto in one cassette. 04/27/201804/27/2018
== END 2018-04-27 13:10 | disposition home or self-care (01) ==
LOC: JASU-ENDO 11:16
PROVIDERS: ATTEND Internal Medicine Gastroenterology
PROC: 0DB68ZX Excision of Stomach, Via Natural or Artificial Opening Endoscopic, Diagnostic (ICD-10-PCS; 2018-04-27)
PROC: 0DB98ZX Excision of Duodenum, Via Natural or Artificial Opening Endoscopic, Diagnostic (ICD-10-PCS; principal; 2018-04-27 13:00)
DX: K25.9 Gastric ulcer, unspecified as acute or chronic, without hemorrhage or perforation (principal); K29.70 Gastritis, unspecified, without bleeding; K44.9 Diaphragmatic hernia without obstruction or gangrene
CPT/HCPCS: 88305-TC; 88342-TC

== ENCOUNTER 2024-06-02 08:23 | Emergency (ER) | payer BC ==
[2024-06-02 08:29] VITALS: BP 143/90; PULSE 77; RESP 20; TEMP 98.7; BMI 28.8
== END 2024-06-02 09:21 | disposition home or self-care (01) ==
LOC: JER 08:23
DX: S86.811A Strain of other muscle(s) and tendon(s) at lower leg level, right leg, initial encounter (principal); X58.XXXA Exposure to other specified factors, initial encounter
CPT/HCPCS: 99283-25